=== PATIENT | female | born 1935 | race Caucasian/White ===

== ENCOUNTER 2019-04-28 07:08 | Inpatient (IN) ==
[2019-04-28] MEDS ORDERED: NS 1,000 ML IV ONE (07:40)
[2019-04-28] MEDS ORDERED: MORPHINE IV ONE (07:40)
[2019-04-28] MEDS ORDERED: ZOFRAN IV ONE (07:40)
[2019-04-28] MEDS ORDERED: NEOSPORIN OINTMENT PACKET TOP ONE (07:41)
[2019-04-28] MEDS ORDERED: BOOSTRIX VACCINE IM ONE (07:41)
[2019-04-28 08:14] LABS: BASO# 0.03 X1000 (0.0-0.2); BASO% 0.4 % (0.0-0.8); EOS% 1.4 % (0.0-10.0); HEMATOCRIT 41.1 % (37.0-47.0); HEMOGLOBIN 14.7 g/dL (12.0-16.0); IMM GRAN# 0.03 X1000 (0.0-0.04); IMM GRAN% 0.4 % (0.0-0.5); LYMPH# 1.02 X1000 (1.2-3.4); LYMPH% 14.7 % (20.5-51.1); MCH 31.5 PG (27-31); MCHC 35.8 g/dL (33-37); MCV 88.2 FL (81-99); MONO# 0.83 X1000 (0.11-0.59); MONO% 11.9 % (1.7-9.3); MPV 8.2 FL (7.4-10.4); NEUT# 4.94 X1000 (1.4-6.5); NEUT% 71.2 % (42.2-75.2); PLT 321 X1000 (130-400); RBC 4.66 XMIL (4.2-5.4); WBC 6.95 X1000 (4.8-10.8)
[2019-04-28 08:26] LABS: INR 0.91; PROTIME 12.3 Seconds (11.0-16.0); PTT 27.1 Seconds (22.3-41.8)
[2019-04-28 08:26] LABS: ALLEN TEST YES; BE 4.5 mmoll (-3.0-3.0); BLOOD TYPE ARTERIAL; HCO3-(ACT) 28.3 mmoll (20.0-26.0); O2(CT) 18.7 mL/dL (15.0-23.0); O2HB 94.2 % (95.0-99.0); PCO2(98.6) 39 mmHg (35-45); PO2(98.6) 68 mmHg (60-100); SAMPLE BLOOD; THB 14.1 g/dL (11.5-17.4); pH(98.6) 7.47 (7.35-7.45)
[2019-04-28 08:49] LABS: ESTIMATED GFR > 60
--- NOTE | 2019-04-28 08:50 | PROVIDER DOCUMENTATION ---
HPI-Head Injury - General Chief Complaint: Fall Stated Complaint: FALL Time Seen by Provider: 04/28/19 07:30 Source: patient, other (neighbor who brought her in for evaluation) Allergies/Adverse Reactions: Patient Allergies Allergy/AdvReac Type Severity Reaction Status Date / Time No Known Allergies Allergy Verified 04/28/19 08:22 Home Medications: Home Medication List Medication Instructions Recorded Confirmed Last Taken Type Acebutolol [Sectral] 400 mg PO TID 08/19/15 04/28/19 09/10/15 08:00 History Aspirin [Aspirin EC] 81 mg PO DAILY 08/19/15 04/28/19 09/10/15 08:00 History Atorvastatin Calcium [Lipitor] 10 mg PO QHS 08/19/15 04/28/19 09/10/15 08:00 History Calcium 500 mg PO DAILY 08/19/15 04/28/19 09/10/15 08:00 History Diltiazem C.d. [Cardizem Cd] 240 mg PO BID 08/19/15 04/28/19 09/10/15 08:00 History Multivitamin [Multivitamins] 1 each PO DAILY 08/19/15 04/28/19 09/10/15 08:00 History Vitamin E 400 unit PO DAILY 08/19/15 04/28/19 09/10/15 08:00 History Hydrochlorothiazide 25 mg PO DAILY 09/10/15 04/28/19 09/10/15 08:00 History Aliskiren Hemifumarate [Tekturna] 300 mg PO DAILY 04/28/19 04/28/19 Unknown History Cyanocobalamin (Vitamin B-12) 1 cap PO DAILY 04/28/19 04/28/19 Unknown History [Vitamin B-12] Levothyroxine [Synthroid] 150 microgm PO DAILY 04/28/19 04/28/19 Unknown History - History of Present Illness-Head Injury Nature of Presenting Problem: Patient states the last thing she remember is getting dressed, and she must have fallen forward striking her face on something. She called her daughter, who is currently out of state, then her daughter called the neighbor to check on her. Neighbor states she has fallen a couple of times over the past couple of years with no recollection as to why she fell. Patient complains of moderate to severe left facial pain, has a small cut over her left eye. Left maxillary sinus is very painful. Last Td is unknown. Patient denies any symptoms before the fall or this morning. No recent illness. Head Injury Location: reports: other (left face) Other injuries associated with incident:: reports: head Quality of Pain: reports: aching Severity: reports: moderate, severe Onset/Duration: reports: 1 hour ago Timing: reports: still present, constant Method of Injury: reports: unknown, fell Any recent trauma/injury?: reports: none Loss of Consciousness: unsure Modifying Factors: improves with: nothing. worse with: palpation Injury Associated Symptoms: reports: denies symptoms Locality of Occurance: Home Similar Symptoms Previously?: Yes (a couple of times over the last couple of years) Recently seen or treated by another doctor?: No Review of Systems - Adult - REVIEW OF SYSTEMS - ADULT Constitutional: reports: no symptoms reported Eyes: reports: no symptoms reported Ears, Nose, Mouth & Throat: reports: no symptoms reported Cardiovascular: reports: no symptoms reported Respiratory: reports: no symptoms reported Gastrointestinal: reports: no symptoms reported Genitourinary: reports: no symptoms reported Musculoskeletal: reports: no symptoms reported Integumentary: reports: no symptoms reported Neurological: reports: no symptoms reported Psychiatric: reports: no symptoms reported Endocrine: reports: no symptoms reported Hematologic/Lymphatic: reports: no symptoms reported Allergic/Immunologic: reports: no symptoms reported All Other Systems: Reviewed and Negative Past History - Adult - PAST MEDICAL HISTORY-ADULT Review of Records: reports: Old Records Reviewed, Nursing Assessment Review, Medications Reviewed, Social history reviewed & non-contributory. Major Childhood Illnesses: reports: denies history Cardiovascular: reports: HTN, hyperlipidemia Respiratory: reports: denies history Gastrointestinal: reports: denies history Obstetrical/Gynecological: reports: denies history Genitourinary: reports: denies history Musculoskeletal: reports: denies history Neurological: reports: CVA Psychiatric: reports: denies history Endocrine/Immune: reports: thyroid disorder Other Conditions: reports: denies history - PRIOR SURGERIES/PROCEDURES Surgical/Procedure History: reports: hysterectomy, other (thyroid removed) - IMMUNIZATION STATUS Childhood Immunizations: See Nurse Assessment Flu Vaccine: See Nurse Assessment - FAMILY HISTORY Family History: reviewed, not pertinent - SOCIAL HISTORY Smoking: non-smoker Substance Use: none/never Alcohol Use Frequency: never Living Situation: family Physical Exam- Neurological - Physical Exam-Neuro Initial Vital Signs Reviewed: Yes (VSSAF) General Appearance: appears well, alert, no apparent distress Eye Exam: bilateral eye: normal inspection, PERRL, periorbital ecchymosis (left side, with 1.5cm superficial laceration lateral upper eyelid/eyebrow area) HENMT: moist mucous membranes, TMs normal, pharynx normal, maxillary tenderness (left side) Head Injury: ecchymosis (left periorbital), swelling (left periorbital/cheek), tenderness (left periorbital/cheek). negative: active bleeding, Gonzales's Sign, raccoon eyes Neck: non-tender, full range of motion, supple, normal inspection. negative: meningismus Respiratory: chest non-tender, lungs clear, normal breath sounds, no pleuratic chest pain, no respiratory distress, no accessory muscle use Cardiovascular: normal peripheral pulses, regular rate, rhythm, no edema, no ga llop, no JVD, no murmur, bradycardia Abdominal Exam: non tender, soft, no organomegaly, no pulsatile mass Lymphatic: no adenopathy Extremity: normal range of motion, non-tender, normal gait, normal inspection, no pedal edema, normal capillary refill oven operator Exam: normal hearing, normal speech, PERRL Coordination/Gait: normal finger to nose, normal gait, negative Romberg's sign Motor/Sensory: no motor deficit, no sensory deficit, no pronator drift Neurologic: oven operator II-XII nml as tested, grossly normal, no motor/sensory deficits Integumentary: normal color, normal turgor Psych/Mental Status: normal mood/affect, normal thought content, normal thought process, oriented x 3 - Glascow Coma Scale Best Eye Response: (4) open spontaneously Best Verbal Response: (5) oriented Best Motor Response: (6) obeys commands Total Glascow Score: 15 Progress - PLAN OF CARE/RESULTS Progress/Plan/Lab Results: Vital Signs - 8 hr 04/28/19 07:18 Temperature 97.6 F Pulse Rate 78 Respiratory Rate 20 Blood Pressure 143/81 O2 Sat by Pulse Oximetry 97 04/28/19 08:25 Influenza Screen - Final Nasopharyngeal Laboratory Results - last 24 hr 04/28/19 04/28/19 04/28/19 07:53 07:53 07:53 WBC 6.95 RBC 4.66 Hgb 14.7 Hct 41.1 MCV 88.2 MCH 31.5 H MCHC 35.8 RDW Std Deviation 13.0 Plt Count 321 MPV 8.2 Immature Gran % (Auto) 0.4 Neut % (Auto) 71.2 Lymph % (Auto) 14.7 L [place] % (Auto) 11.9 H Eos % (Auto) 1.4 Baso % (Auto) 0.4 Immature Gran # (Auto) 0.03 Neut # (Auto) 4.94 Lymph # (Auto) 1.02 L [place] # (Auto) 0.83 H Eos # (Auto) 0.10 Baso # (Auto) 0.03 PT INR PTT (Actin FS) Specimen Type Sample Site pH pCO2 pO2 HCO3 Base Excess Oxyhemoglobin ABG O2 Sat (Calculated) ABG O2 Saturation ABG Carboxyhemoglobin ABG Methemoglobin John Test A-a O2 Difference Total Hemoglobin Lactate FiO2 % Sodium 126 L Potassium 3.9 Chloride 89 L Carbon Dioxide 26 Anion Gap 11 BUN 14 Creatinine 0.8 Estimated GFR/1.73 m2 > 60 BUN/Creatinine Ratio 18 Glucose 104 Calculated Osmolality 254 Calcium 9.5 Total Bilirubin 0.56 AST 22 ALT 23 Alkaline Phosphatase 62 Creatine Kinase 46 Troponin T High Sens Total Protein 6.1 L Albumin 4.0 Globulin 2.1 Albumin/Globulin Ratio 1.9 Plasma Lactate TSH Urine Source Urine Color Urine Turbidity Urine pH Ur Specific [place] Urine Protein Ur Glucose (Stick) Ur Ketones (Stick) Urine Blood Urine Nitrite Urine Bilirubin Urobilinogen Dipstick Urine Leukocytes Plasma/Serum Ethyl Alc 04/28/19 04/28/19 04/28/19 07:53 07:53 07:53 WBC RBC Hgb Hct MCV MCH MCHC RDW Std Deviation Plt Count MPV Immature Gran % (Auto) Neut % (Auto) Lymph % (Auto) [place] % (Auto) Eos % (Auto) Baso % (Auto) Immature Gran # (Auto) Neut # (Auto) Lymph # (Auto) [place] # (Auto) Eos # (Auto) Baso # (Auto) PT 12.3 INR 0.91 PTT (Actin FS) 27.1 Specimen Type Sample Site pH pCO2 pO2 HCO3 Base Excess Oxyhemoglobin ABG O2 Sat (Calculated) ABG O2 Saturation ABG Carboxyhemoglobin ABG Methemoglobin John Test A-a O2 Difference Total Hemoglobin Lactate FiO2 % Sodium Potassium Chloride Carbon Dioxide Anion Gap BUN Creatinine Estimated GFR/1.73 m2 BUN/Creatinine Ratio Glucose Calculated Osmolality Calcium Total Bilirubin AST ALT Alkaline Phosphatase Creatine Kinase Troponin T High Sens 12 Total Protein Albumin Globulin Albumin/Globulin Ratio Plasma Lactate 1.2 TSH Urine Source Urine Color Urine Turbidity Urine pH Ur Specific [place] Urine Protein Ur Glucose (Stick) Ur Ketones (Stick) Urine Blood Urine Nitrite Urine Bilirubin Urobilinogen Dipstick Urine Leukocytes Plasma/Serum Ethyl Alc 04/28/19 04/28/19 04/28/19 07:53 08:20 08:30 WBC RBC Hgb Hct MCV MCH MCHC RDW Std Deviation Plt Count MPV Immature Gran % (Auto) Neut % (Auto) Lymph % (Auto) [place] % (Auto) Eos % (Auto) Baso % (Auto) Immature Gran # (Auto) Neut # (Auto) Lymph # (Auto) [place] # (Auto) Eos # (Auto) Baso # (Auto) PT INR PTT (Actin FS) Specimen Type ARTERIAL Sample Site R RADIAL pH 7.47 H pCO2 39 pO2 68 HCO3 28.3 H Base Excess 4.5 H Oxyhemoglobin 94.2 L ABG O2 Sat (Calculated) 18.7 ABG O2 Saturation 96.0 ABG Carboxyhemoglobin 1.90 ABG Methemoglobin 0.0 John Test YES A-a O2 Difference 33.0 Total Hemoglobin 14.1 Lactate 0.90 FiO2 % 21.0 Sodium Potassium Chloride Carbon Dioxide Anion Gap BUN Creatinine Estimated GFR/1.73 m2 BUN/Creatinine Ratio Glucose Calculated Osmolality Calcium Total Bilirubin AST ALT Alkaline Phosphatase Creatine Kinase Troponin T High Sens Total Protein Albumin Globulin Albumin/Globulin Ratio Plasma Lactate TSH 0.63 Urine Source CLEAN CATCH Urine Color YELLOW Urine Turbidity CLEAR Urine pH 7.5 Ur Specific [place] 1.014 Urine Protein NEGATIVE Ur Glucose (Stick) NEGATIVE Ur Ketones (Stick) NEGATIVE Urine Blood NEGATIVE Urine Nitrite NEGATIVE Urine Bilirubin NEGATIVE Urobilinogen Dipstick NORMAL Urine Leukocytes SMALL A Plasma/Serum Ethyl Alc Orders Category Date Time Status Cardiac Monitoring DIRECTED Care 04/28/19 07:41 Active Finger Stick Blood Sugar (ED) DIRECTED Care 04/28/19 07:41 Active Ice Pack to affected area DIRECTED Care 04/28/19 07:41 Active Wound Care DIRECTED Care 04/28/19 07:40 Active CHEST-2 VIEWS [RAD] Stat Exams 04/28/19 07:[address] HEAD/C-SPINE W/O CONTRAST [CT] Stat Exams 04/28/19 07:[address] MAXILLOFACIAL(SINUS) W/O CO [CT] Stat Exams 04/28/19 07:38 Completed ABG [RESP] Routine Lab 04/28/19 08:20 Completed ALCOHOL BLOOD Stat Lab 04/28/19 07:53 Completed CBC WITH ELECTRONIC DIFF [HEME] Stat Lab 04/28/19 07:53 Completed CK PROFILE [SP CHEM] Stat Lab 04/28/19 07:53 Completed COMPREHENSIVE METABOLIC PANEL [CHEM] Stat Lab 04/28/19 07:53 Completed INFLUENZA SCREEN A/B Stat Lab 04/28/19 08:25 Completed LACTATE, PLASMA [CHEM] Stat Lab 04/28/19 07:53 Completed PROTIME WITH INR [COAG] Stat Lab 04/28/19 07:53 Completed PTT [COAG] Stat Lab 04/28/19 07:53 Completed TROPONIN T HIGH SENSITIVITY Stat Lab 04/28/19 07:53 Completed TSH Stat Lab 04/28/19 07:53 Completed URINALYSIS [URINALYSIS] Stat Lab 04/28/19 08:30 Results URINE DRUG SCREEN Stat Lab 04/28/19 08:30 Received URINE MANUAL MICROSCOPIC [URINALYSIS] Stat Lab 04/28/19 08:30 Results 0.9% Sodium Chloride Inj [Ns] 1,000 ml Med 04/28/19 07:40 Active IV 125 mls/hr Diph,Pertuss(Acell),Tet Vac/Pf [Boostrix Vaccine] Med 04/28/19 07:41 Discontinued 0.5 ml IM .ONCE ONE Morphine Med 04/28/19 07:40 Discontinued 2 mg IV NOW ONE Neomycin/Bacitrcn/Polymyx Oint [Neosporin Ointment Med 04/28/19 07:41 Discontinued Packet] 1 each TOP NOW ONE Ondansetron [Zofran] Med 04/28/19 07:40 Discontinued 4 mg IV NOW ONE Altered Mental Status Stat Oth 04/28/19 07:41 Ordered EKG [EKG] Stat Ther 04/28/19 07:22 Draft Result Diagrams: 04/28/19 07:53 04/28/19 07:53 - REASSESSMENT Reassessment #1 Time Reassessed: 09:50 Status: improving (State[place] feels better with IVF and morphine. WOunds cleansed and dressed. I will ask hospitalist service to observe for unwitnessed fall/syncope and hyponatremia.) - EKG 1 Time of EKG reading by physician:: 07:32 EKG Read and Signed by:: Willian Landeros EKG Interpretation (*Must complete 3 of following elements*): Abnormal Rate: 57 Rhythm: Sinus perri [place]: normal QRS: poor R wave progression PA Interval: normal ST Wave: normal Prior EKG Comparison: unchanged from prior - XRAY 1 XRAY Study: Chest Impression: Normal, See EMR Report ( Signed EXAM: CHEST-2 VIEWS 04/28/2019 HISTORY: fall TECHNIQUE: PA and lateral chest COMMENT: There are scattered granulomata bilaterally. Compared to one 2011 there has been no significant change. IMPRESSION: No acute disease. Electronically signed by Mckinley Steen 04/28/2019 8:52 AM 04/28/19851 Interpreting Physician: Mckinley Steen MD Dictated Date/Time: 04/28/19851 cc: Willian Landeros MD; Tip Henriquez MD) - CT/MRI 1 CT Study: Head (and C-Spine) Impression: Abnormal, See EMR Report ( Signed EXAM: CT HEAD/C-SPINE W/O CONTRAST 04/28/2019 HISTORY: head injury/pain TECHNIQUE: This exam was performed using automated exposure control, adjustment of mA or kV according to patient size, and/or use of iterative reconstruction technique. COMMENT: There is no evidence of mass effect, bleed, or abnormal extra axial fluid collection. There is calcification in the globus pallidus on the right. The visualized paranasal sinuses are clear. The calvarium is intact. Compared to 05/04/2018 the appearance the brain has not changed significantly. 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 There is disc space narrowing at the C4-5, C5-6, and C6-7 levels with posterior osteophyte formation particularly at C6-7. This has not changed significantly since the previous study of 05/04/2018. The facets are aligned. There are severe facet hypertrophic changes on the left at the C3-4 level and on the right at C2-3 C3-4 C4-5 and C5-6. IMPRESSION: No evidence of acute intracranial disease. 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 Electronically signed by Mckinley Steen 04/28/2019 9:32 AM 04/28/19 0932 Interpreting Physician: Mckinley Steen MD Dictated Date/Time: 04/28/19 0929 cc: Willian Landeros MD; Tip Henriquez MD) 2 CT Study: Facial Bones Impression: Abnormal, See EMR Report (Signed EXAM: CT MAXILLOFACIAL(SINUS) W/O CO 04/28/2019 HISTORY: fall, facial injury TECHNIQUE: CT of the facial bones COMMENT: There are no air-fluid levels. There are degenerative changes in the temporomandibular joints particularly the left. The mandible appears to be intact. There is some fluid in the right mastoid air cells. There is no evidence of fracture. There are no apparent soft tissue abnormalities in the orbits. There is a hematoma over the left cheek. IMPRESSION: No acute bony abnormality. Electronically signed by Mckinley Steen 04/28/2019 9:34 AM 04/28/19 0934 Interpreting Physician: Mckinley Steen MD Dictated Date/Time: 04/28/19 0932 cc: Willian Landeros MD; Tip Henriquez MD) - CONSULTS/PCP/HOSPITALIST Notification #1 *Consult/PCP/Hospitalist*: Hospitalist paged at 0940 Time Discussed: 09:57 (LESLY Cid) Consult Disposition: Will see in ED, Admit Departure - Departure Date of Disposition Decision: 04/28/19 Time of Disposition Decision: 09:53 DIAGNOSIS: Hyponatremia syndrome Facial contusion Qualifiers: Encounter type: initial encounter Qualified Code(s): S00.83XA - Contusion of other part of head, initial encounter Fall as cause of accidental injury at home as place of occurrence Qualifiers: Encounter type: initial encounter Qualified Code(s): W19.XXXA - Unspecified fall, initial encounter Disposition: ADMITTED INPATIENT 09 Certified Medical Emergency: Emergent Condition: Stable Referrals and Follow-Ups: Tip Henriquez MD [Primary Care Provider] - - Critical Care Note This patient required my direct & personal management of CC.: No Attestation - Physician/ HELLEN Attestation Patient care was provided by Advanced Practice Provider:: No The physician spent face to face time with patient:: Yes Advanced Practice Provider documentation review:: Supervising physician onsite and consulted in the evaluation and care of this patient. The physician did have a face to face encounter with the patient.
[2019-04-28 08:53] LABS: AGAP 11; ALB/GLOB RATIO 1.9; ALKALINE PHOSPHATASE 62 U/L (32-104); BUN 14 mg/dL (8-22); CALCIUM 9.5 mg/dL (8.8-10.2); CHLORIDE 89 mmol/L (98-107); CK PROFILE 46 U/L (24-173); COSMO 254; CREATININE 0.8 mg/dL (0.5-0.9); GLUCOSE 104 mg/dL (70-104); GOT 22 U/L (10-30); GPT 23 U/L (10-36); POTASSIUM 3.9 mmol/L (3.5-5.1); SODIUM 126 mmol/L (136-145); TCO2 26 mmol/L (25-35); TOTAL BILIRUBIN 0.56 mg/dL (0.20-1.00); TOTAL PROTEIN 6.1 g/dL (6.3-8.3)
--- NOTE | 2019-04-28 08:55 | Diag Imaging Result Doc PS360 ---
EXAM: CHEST-2 VIEWS 04/28/2019 HISTORY: fall TECHNIQUE: PA and lateral chest COMMENT: There are scattered granulomata bilaterally. Compared to one 2011 there has been no significant change. IMPRESSION: No acute disease. Electronically signed by Mckinley Steen 04/28/2019 8:52 AM
--- NOTE | 2019-04-28 09:05 | EKG Report ---
Test Performed on : 04/28/2019 07:24:44 AM Test Reason : POSSIBLE SYNCOPE Blood Pressure : / mmHG Vent. Rate : 057 BPM Atrial Rate : 057 BPM P-R Int : 164 ms QRS Dur : 088 ms QT Int : 454 ms P-R-T Axes : 074 037 044 degrees QTc Int : 441 ms Sinus bradycardia. Otherwise normal ECG When compared with ECG of 03-NOV-2010 09:58, No significant change was found Unconfirmed Result
--- NOTE | 2019-04-28 09:34 | Diag Imaging Result Doc PS360 ---
EXAM: CT HEAD/C-SPINE W/O CONTRAST 04/28/2019 HISTORY: head injury/pain TECHNIQUE: This exam was performed using automated exposure control, adjustment of mA or kV according to patient size, and/or use of iterative reconstruction technique. COMMENT: There is no evidence of mass effect, bleed, or abnormal extra axial fluid collection. There is calcification in the globus pallidus on the right. The visualized paranasal sinuses are clear. The calvarium is intact. Compared to 05/04/2018 the appearance the brain has not changed significantly. Cervical spine: Severe degenerative changes are seen in the anterior atlantoaxial joint with calcification of the ligaments. There is disc space narrowing at the C4-5, C5-6, and C6-7 levels with posterior osteophyte formation particularly at C6-7. This has not changed significantly since the previous study of 05/04/2018. The facets are aligned. There are severe facet hypertrophic changes on the left at the C3-4 level and on the right at C2-3 C3-4 C4-5 and C5-6. IMPRESSION: No evidence of acute intracranial disease. 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 Electronically signed by Mckinley Steen 04/28/2019 9:32 AM
--- NOTE | 2019-04-28 09:36 | Diag Imaging Result Doc PS360 ---
EXAM: CT MAXILLOFACIAL(SINUS) W/O CO 04/28/2019 HISTORY: fall, facial injury TECHNIQUE: CT of the facial bones COMMENT: There are no air-fluid levels. There are degenerative changes in the temporomandibular joints particularly the left. The mandible appears to be intact. There is some fluid in the right mastoid air cells. There is no evidence of fracture. There are no apparent soft tissue abnormalities in the orbits. There is a hematoma over the left cheek. IMPRESSION: No acute bony abnormality. Electronically signed by Mckinley Steen 04/28/2019 9:34 AM
[2019-04-28 09:41] LABS: URINE SOURCE CLEAN CATCH
[2019-04-28 09:47] LABS: BILIRUBIN URINE NEGATIVE (NEGATIVE); BLOOD URINE NEGATIVE (NEGATIVE); COLOR YELLOW; GLUCOSE URINE NEGATIVE (NEGATIVE); KETONE URINE NEGATIVE (NEGATIVE); LEUKOCYTES URINE SMALL (NEGATIVE); NITRITE URINE NEGATIVE (NEGATIVE); PH URINE 7.5; PROTEIN URINE NEGATIVE (NEGATIVE); SP GRAVITY URINE 1.014; TURBIDITY URINE CLEAR (CLEAR); UROBILINOGEN URINE NORMAL (NORMAL)
[2019-04-28 10:02] LABS: UR EPITHELIAL CELLS <10 /HPF (<10); URINE BACTERIA NEGATIVE /HPF; URINE RBC <10 /HPF (<10); URINE WBC <10 /HPF (<10)
[2019-04-28] MEDS ORDERED: ZOFRAN IV PRN (10:06)
[2019-04-28 10:52] LABS: URINE SMALL ROUND CELLS RENAL PRESENT
[2019-04-28 11:03] LABS: UR AMPHETAMINES QUAL NONE DETECTED (NONE DETECT); UR BARBITUATES QUAL NONE DETECTED (NONE DETECT); UR BENZODIAZEPIN QUAL NONE DETECTED (NONE DETECT); UR CANNABINOIDS QUAL NONE DETECTED (NONE DETECT); UR COCAINE QUAL NONE DETECTED (NONE DETECT); UR METHADONE QUAL NONE DETECTED (NONE DETECT); UR OPIATES QUAL NONE DETECTED (NONE DETECT); UR OXYCODONE QUAL NONE DETECTED (NONE DETECT); UR PCP QUAL NONE DETECTED (NONE DETECT)
[2019-04-28 11:03] LABS: TSH 0.65 uIUmL (0.27-4.20)
--- NOTE | 2019-04-28 12:07 | HISTORY AND PHYSICAL ---
CHIEF COMPLAINT: Fall. 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 She presents to the emergency room after falling this morning. The patient states that she got up out of bed this morning, and felt her normal self, went to the bathroom, went to the kitchen to make coffee, got dressed, and was walking across the floor, and the next thing she remembers is waking up on the floor, hurting below her left breast and on the left side of her face. She called her daughter, who lives out of town. The daughter called a neighbor. Neighbor went over to check on the patient. The patient denies any vomiting, any incontinence of stool or urine. She denied any dizziness or syncope, any palpitations or any warning. She states that she has fallen at least twice over the last 2 years with episodes similar to this. Ms. Carr is noted to have left periorbital ecchymosis and edema. She is tender to palpation just above her left eyebrow and the left maxillary area. She denies any dizziness, any change in vision, any chest pain or palpitations. PAST MEDICAL HISTORY: Hypertension, hyperlipidemia, hypothyroid, and a brain bleed 20 years prior with no residual. PAST SURGICAL HISTORY: Appendectomy, cholecystectomy, hysterectomy, thyroidectomy. SOCIAL HISTORY: She lives alone, but has children that live close and are active in her care. She denies any alcohol, tobacco, or illicit drug use. ALLERGIES: No known drug allergies. HOME MEDICATIONS: A list will be obtained by the nursing staff. Once verified, will review and restart as appropriate. REVIEW OF SYSTEMS: Discussed with the patient with pertinent positives stated in the HPI. She denied any dizziness, any chest pain, palpitations, shortness of breath, cough, fever, chills, any night sweats, recent weight loss or weight gain, any nausea, vomiting, diarrhea, constipation, black or bloody vomitus or stools, any hematuria, dysuria, frequency, urgency. PHYSICAL EXAMINATION: GENERAL: This is an 84-year-old female who is sitting up on the stretcher in the emergency room in no distress. VITAL SIGNS: Blood pressure is 143/81, with a heart rate of 78, respirations are 20, temperature is 97.6 degrees oral, with room air saturations of 97%. HEENT: Head is normocephalic, atraumatic. Mucous membranes are moist. Pupils are equal, round, and react to light. EOMs are intact. Sclerae are anicteric. NECK: Supple with trachea midline. CARDIOVASCULAR: Regular rate and rhythm. S1 and S2 appreciated. No murmurs. She has no lower extremity edema. Calves are nontender bilaterally. Peripheral pulse is palpable x4 extremities. PULMONARY: Breath sounds are clear with no increased work of breathing noted. Chest rises and falls symmetrically with respiration. Chest wall is tender to palpation, midclavicular area just below the left breast. There is no bruising or crepitus noted. GASTROINTESTINAL: Abdomen is soft, nontender, nondistended with bowel sounds in all 4 quadrants. GENITOURINARY: No CVA or suprapubic tenderness. SKIN: Warm and dry with periorbital edema and ecchymosis noted on the left with some ecchymosis noted in the left maxillary area. NEUROLOGIC: Pupils are equal, round, react to light. EOMs are intact. Forehead is spared. She has equal nasal flaring. Face is symmetrical. No tongue or uvula deviation. Equal shoulder shrug. She has no plantar drift. Muscle strength is 5/5 x4 extremities. [id number] is 3/3 bilateral. LABORATORY DATA: WBC is 6.9, with hemoglobin 14.7, hematocrit 41.1, and platelets of 321,000. INR 0.91. Sodium 126, potassium 3.9, BUN 14, creatinine 0.8, with a glucose of 104. Urinalysis is essentially negative. Urine drug screen reveals none detected. Blood alcohol reveals none detected. Influenza A and B are negative. IMAGIN. CT of the head and C-spine reveals no evidence of acute intracranial disease. Degenerative disk and facet changes in the cervical spine. 2. Maxillofacial CT: No acute bony abnormality. There is a hematoma over the left cheek. The left mandible appears to be intact. There is some fluid in the right mastoid air cells. There is no evidence of fracture. No apparent soft tissue abnormalities in the orbits. 3. Chest x-ray: No acute disease. ASSESSMENT: 1. Hyponatremia. 2. Fall. 3. Possible syncopal episode. 4. Periorbital contusion on the left. 5. Hypertension. 6. Hypothyroid. PLAN: The patient will be admitted to the hospital. She will be placed on telemetry with neurologic checks every 4 hours. Check orthostatic vital signs now and every 12 hours. Will obtain an echocardiogram and a carotid ultrasound. She will be placed on fall precautions. Will check a B12, folate, check a TSH now, a CBC and CMP in the morning. Will continue with gentle IV hydration. In reviewing her medications, the patient is on hydrochlorothiazide. She denies any prior history of hyponatremia. Will hold her hydrochlorothiazide at present, and trend labs in the morning. For DVT prophylaxis, will use SCDs. Hold off on any anticoagulation as she does have bruising and is status post a fall. For GI prophylaxis, Prilosec. Plan was discussed with Dr. Richter. Further orders after his evaluation. Dictated by LESLY Butler for Russell Richter MD cc: LESLY Butler MD [facility]
--- NOTE | 2019-04-28 17:29 | ECHO REPORT ---
ORDER DATE: 04/28/2019 INDICATION: Syncope. FINDINGS: 1. The right atrium appears normal in size at 2.9 cm. 2. Mild tricuspid regurgitation. RV systolic pressure of 40. 3. Normal RV size and systolic function. 4. No significant pulmonic insufficiency. 5. Normal left atrial size with a volume index of 22. 6. No mitral valve prolapse. Trace mitral regurgitation. 7. Normal LV size, end-diastolic dimension of 4.3. Normal wall thicknesses with a posterior and interventricular septal wall thickness of 0.7 cm each. Normal LV systolic function. The estimated EF is 60% to 65% with normal wall motion. 8. The aortic valve appears to open well. There is mild insufficiency. No evidence of stenosis. 9. The aorta appears normal in visualized segments. 10. No pericardial effusion seen. 11. Suggestion of grade 1 diastolic dysfunction. 12. Injection of agitated saline contrast did not seem to demonstrate any clear evidence of right- to-left shunt. cc: MD Vicky Canales CRNP
[2019-04-28 19:46] LABS: CALCIUM 8.6 mg/dL (8.8-10.2); POTASSIUM 3.1 mmol/L (3.5-5.1)
[2019-04-28] MEDS ORDERED: TYLENOL PO PRN (20:24)
[2019-04-28 23:06] LABS: URINE SOURCE CLEAN CATCH
[2019-04-28 23:09] LABS: BILIRUBIN URINE NEGATIVE (NEGATIVE); BLOOD URINE NEGATIVE (NEGATIVE); COLOR YELLOW; GLUCOSE URINE NEGATIVE (NEGATIVE); KETONE URINE NEGATIVE (NEGATIVE); LEUKOCYTES URINE TRACE (NEGATIVE); NITRITE URINE NEGATIVE (NEGATIVE); PROTEIN URINE NEGATIVE (NEGATIVE); TURBIDITY URINE CLEAR (CLEAR); UROBILINOGEN URINE NORMAL (NORMAL)
[2019-04-28 23:17] LABS: UR EPITHELIAL CELLS <10 /HPF (<10); URINE BACTERIA NEGATIVE /HPF; URINE RBC <10 /HPF (<10); URINE WBC <10 /HPF (<10)
[2019-04-28 23:53] LABS: CALCIUM 8.5 mg/dL (8.8-10.2); CREATININE 0.9 mg/dL (0.5-0.9); POTASSIUM 3.6 mmol/L (3.5-5.1)
[2019-04-29 03:16] LABS: AGAP 8; BUN 12 mg/dL (8-22); CALCIUM 8.7 mg/dL (8.8-10.2); CHLORIDE 95 mmol/L (98-107); COSMO 259; CREATININE 0.7 mg/dL (0.5-0.9); ESTIMATED GFR > 60; GLUCOSE 98 mg/dL (70-104); POTASSIUM 3.1 mmol/L (3.5-5.1); SODIUM 129 mmol/L (136-145); TCO2 26 mmol/L (25-35)
[2019-04-29 07:54] LABS: BASO# 0.02 X1000 (0.0-0.2); BASO% 0.4 % (0.0-0.8); EOS# 0.06 X1000 (0.0-0.7); EOS% 1.2 % (0.0-10.0); HEMOGLOBIN 12.8 g/dL (12.0-16.0); LYMPH# 0.99 X1000 (1.2-3.4); LYMPH% 19.5 % (20.5-51.1); MCH 31.4 PG (27-31); MCHC 34.6 g/dL (33-37); MCV 90.9 FL (81-99); MONO# 0.67 X1000 (0.11-0.59); MONO% 13.2 % (1.7-9.3); MPV 8.2 FL (7.4-10.4); NEUT# 3.33 X1000 (1.4-6.5); NEUT% 65.7 % (42.2-75.2); PLT 272 X1000 (130-400); RBC 4.07 XMIL (4.2-5.4); WBC 5.07 X1000 (4.8-10.8)
[2019-04-29 08:25] LABS: AGAP 8; ALB/GLOB RATIO 1.3; ALBUMIN 3.2 g/dL (3.5-5.0); ALKALINE PHOSPHATASE 55 U/L (32-104); BUN 10 mg/dL (8-22); CALCIUM 8.6 mg/dL (8.8-10.2); CHLORIDE 95 mmol/L (98-107); COSMO 263; CREATININE 0.7 mg/dL (0.5-0.9); ESTIMATED GFR > 60; GLUCOSE 97 mg/dL (70-104); GOT 18 U/L (10-30); GPT 19 U/L (10-36); POTASSIUM 3.1 mmol/L (3.5-5.1); SODIUM 132 mmol/L (136-145); TCO2 29 mmol/L (25-35); TOTAL BILIRUBIN 0.33 mg/dL (0.20-1.00); TOTAL PROTEIN 5.6 g/dL (6.3-8.3)
[2019-04-29] MEDS: CARDIZEM CD PO SCH ×2 (08:56→20:37)
[2019-04-29] MEDS: SYNTHROID PO SCH (08:56)
--- NOTE | 2019-04-29 16:07 | EKG Report ---
Test Performed on : 04/29/2019 3:54:55 PM Test Reason : Followup EKG Blood Pressure : / mmHG Vent. Rate : 066 BPM Atrial Rate : 066 BPM P-R Int : 136 ms QRS Dur : 088 ms QT Int : 402 ms P-R-T Axes : -17 020 047 degrees QTc Int : 421 ms Normal sinus rhythm. Normal ECG When compared with ECG of 28-APR-2019 07:24, (Unconfirmed) No significant change was found Confirmed by Russell BURRELL, Jarred Johnson ([id number]) on 05/03/2019 5:53:06 PM
[2019-04-29] MEDS: KLOR-CON PO SCH ×2 (18:36→22:14)
--- NOTE | 2019-04-29 20:05 | PROGRESS NOTE ---
DATE: 04/29/2019 INTERVAL HISTORY: No acute events overnight. Ms. Carr is feeling better. She denies new complaints. She denies dizziness, chest pain, shortness of breath, palpitations. Her daughter is at bedside. We discussed about hyponatremia. We discussed about multiple AV tabitha blocking agents. We discussed about getting another EKG. OBJECTIVE: vital signs: Currently, temperature of 98.1 degrees, pulse 66, respiratory rate 19, blood pressure 119/56, saturating 98% on room air. Ms. Carr does not appear in any acute distress. She does have a hematoma affecting the left periorbital region. Her oral cavity is moist. Air entry bilaterally equal. No wheeze, rhonchi, or crackles. S1, S2 normal. No murmur, rub, or gallop. Abdomen: Soft, nontender. No lower extremity edema. DIAGNOSTIC DATA: Bedside monitor has normal sinus rhythm. Input and output is not charted appropriately. Labs suggestive of hemoglobin of 12.8, WBC 5.07, platelet 272,000. She does have improvement in her electrolytes. Her sodium is 132, potassium is 3.1, chloride 95. Microbiology, no positive data so far. No positive imaging. Echocardiogram, 60 to 65 percent ejection fraction. ASSESSMENT AND PLAN: 1. Fall. The patient did not remember the fall episode entirely, though now she is alert and oriented x3, and does not have any amnesia. Differential includes hyponatremia, use of multiple AV tabitha blocking agents. She denies known history of seizures. I will get repeat EKG continue her on telemetry monitoring, and get orthostatic vitals. I am holding her beta blockers and continuing calcium channel blockers. I will recheck her sodium level tomorrow. I am holding her hydrochlorothiazide. 2. History of hyperlipidemia and hypothyroidism. Continue home levothyroxine and atorvastatin. DISPOSITION: My plan is to monitor patient inside the hospital for another 24 hours as I am watching her for any telemetric event, orthostatic vitals, and repeat EKG. Based on that, I will consider discharging her in the next 24 hours. Plan of care discussed with the patient and her daughter at bedside. Their questions have been satisfactorily answered. cc: Valentin Harper MD
--- NOTE | 2019-04-29 20:45 | PROGRESS NOTE ---
DATE: 04/28/2019 Patient came in with a syncopal episode. I think it is related to her hyponatremia. I agree with neuro checks, telemetry, echo, carotid. I think her problem with her hyponatremia is related to her poor nutrition and then the hydrochlorothiazide, which I would discontinue, I would probably say permanently and work on a better diet. Check urine electrolytes and follow. Slow correction. This was a [id number] encounter. cc: Russell Richter MD
[2019-04-29] MEDS ORDERED: LIPITOR PO SCH (21:00)
[2019-04-29] MEDS ORDERED: KLOR-CON PO SCH (22:30)
--- NOTE | 2019-04-29 22:48 | PROGRESS NOTE ---
DATE: 04/29/2019 INTERVAL HISTORY: No acute events overnight. SUBJECTIVE: Ms. Carr is denies new complaints. Her daughter is at bedside. VITALS: Temperature of 98.3 degrees, pulse 64, respiratory rate 19, blood pressure 146/56, saturating 98% room air. PHYSICAL EXAMINATION: Left eye periorbital hematoma.Lungs: Air entry bilaterally equal. Equal no wheeze or crackles. Cardiovascular: S1 normal. No murmur or gallop. Abdomen: Soft, nontender. Extremity: No lower extremity edema. Neurologic: She is alert and oriented x3. LABS: Suggestive of WBC of 5.0, hemoglobin 12.8, platelet 272,000. Sodium improved from 126 to 132, BUN is 10, creatinine of 0.7, urine osmolality is 280. Remaining urine tests are pending. No positive microbiological data. Echocardiogram had suggested ejection fraction of 60 to 65 percent with normal wall motion. ASSESSMENT AND PLAN: 1. Hyponatremia due to hydrochlorothiazide use versus other etiologies. 2. Syncope and mechanical fall. Differential being hyponatremia, symptomatic bradycardia, postural hypotension in the setting of use of multiple antihypertensive medication including high doses of beta osvaldo and diltiazem. 3. Periorbital contusion. 4. Essential hypertension. PLAN: Continue the patient on telemetry monitoring. Hold beta blockers. Take orthostatic vitals. Follow up sodium level. Follow up urine lytes. If she does not have any telemetric event, anticipating discharge in 24 hours with outpatient follow-up. Plan of care discussed with the patient and her daughter. Their questions have been satisfactorily answered. cc: Valentin Harper MD
[2019-04-30 07:56] VITALS: BP 148/55
[2019-04-30 08:37] LABS: AGAP 7; BUN 11 mg/dL (8-22); CALCIUM 8.9 mg/dL (8.8-10.2); CHLORIDE 99 mmol/L (98-107); COSMO 264; CREATININE 0.7 mg/dL (0.5-0.9); ESTIMATED GFR > 60; GLUCOSE 97 mg/dL (70-104); MAGNESIUM 1.9 mg/dL (1.5-2.7); POTASSIUM 4.1 mmol/L (3.5-5.1); SODIUM 132 mmol/L (136-145); TCO2 26 mmol/L (25-35)
[2019-04-30] MEDS: SYNTHROID PO SCH (08:39)
[2019-04-30] MEDS: CARDIZEM CD PO SCH (08:39)
[2019-04-30] MEDS ORDERED: ASPIRIN EC PO SCH (09:00)
[2019-04-30] MEDS ORDERED: TEKTURNA PO SCH (10:30)
--- NOTE | 2019-05-01 11:55 | DISCHARGE SUMMARY ---
ADMISSION DATE: 04/28/2019 DISCHARGE DATE: 04/30/2019 DISCHARGE DISPOSITION: Home. DISCHARGE CONDITION: Hemodynamically stable. She has not bradycardia episodes. She has not had any syncope episodes. She has been able to come out of bed and go to the bathroom without having any symptoms. Her orthostatic vitals were unremarkable. DISCHARGE DIAGNOSES: 1. Mechanical fall. 2. Suspected syncope. 3. Hyponatremia. 4. Suspected symptomatic bradycardia. OTHER DIAGNOSES: 1. History of hypothyroidism. 2. History of hyperlipidemia History of essential hypertension. CURRENT DIAGNOSES: 1. Periorbital contusion on the left. 2. Hypokalemia. DISCHARGE MEDICATIONS: 1. Atorvastatin 10 mg at nighttime. 2. Aspirin 81 mg daily. 3. Calcium 500 mg daily. 4. Diltiazem 240 mg b.i.d. 5. Multivitamin 1 tablet daily. 6. Levothyroxine 150 mcg daily. 7. Tekturna 300 mg daily. 8. Vitamin B12 1 capsule 1000 mcg daily. 9. Vitamin E 400 units daily. 10. Acetaminophen 650 mg every 6 hours as needed. VITAL SIGNS: At the time of discharge, temperature 98.3 degrees, pulse 60,respiratory rate 19, blood pressure 148/55, saturating 100% on room air. PHYSICAL EXAMINATION: General: Not in acute distress. HEENT: Oral cavity is moist. She has left-sided periorbital hematoma, but her conjunctiva and pupils are healthy. Pupils are bilaterally equal reacting to light. Lungs: Air entry bilateral equal. No wheezes, rhonchi or crackles. Heart: S1, S2 normal. No murmur, rub, or gallop. Abdomen: Soft, nontender. Extremities: No lower extremity edema. Neurologic: She is alert and oriented x3. LABORATORY: At the time of discharge, WBC 5000 hemoglobin 12.8, platelet 272,000. Sodium improved from 126 on presentation to 132, potassium 4.1, BUN 11, creatinine 0.7. Her vitamin B12 was more than 2000. Her TSH was 0.65. Her urinalysis did not have pyuria. Her urine osmolality was 280 and urine random sodium was 40. Urine toxicology was unremarkable. Urine culture did not have any growth. Influenza screen on presentation was negative. SIGNIFICANT IMAGIN. Head, cervical spine CT on presentation did not have evidence of acute intracranial disease. She did have degenerative disk and facet changes in cervical spine. 2. Maxillofacial CT did not have any acute bony abnormality. She had a left periorbital hematoma. 3. Chest x-ray on presentation did not have any acute cardiopulmonary process. 4. Echocardiogram had suggested ejection fraction of 60% to 65% with normal wall motion. 5. Electrocardiogram on presentation had sinus bradycardia. 6. Though carotid ultrasound has not been officially read, the preliminary report suggests she had 40% to 60% stenosis bilaterally. HOSPITAL COURSE SUMMARY: Ms. Carr is an 84-year-old lady with past medical history of essential hypertension, hyperlipidemia, hypothyroidism, intracranial hemorrhage 20 years ago without any residual defects or abnormalities, who got up to get dressed in the bathroom and had a fall. She could not remember the circumstances of the fall. The next thing she would remember was she was in the bed. She lives by herself. When she found herself in the bed, she was having pain in her left elbow, left breast region, and the left side of her face. She called her daughter and so she was brought to the hospital. In the emergency room, she was hemodynamically stable. The imaging of her head, cervical spine did not have any acute pathology. She was found to have hyponatremia with sodium of 126, so the Hospitalist team was consulted for further management. It was thought that there were potentially 2 contributing factors for her fall and possible syncope. One was hypotonic hyponatremia caused by use of hydrochlorothiazide and the second possibility was symptomatic bradycardia. She did have episode of heart rate of as low as 54 during this hospital admission. She was at home listed to be taking acebutolol as well as high dose of diltiazem. Her hydrochlorothiazide was stopped and she was given intravenous fluids following which her sodium improved and remained stable at 132. Her acebutolol all was stopped and she was kept on diltiazem following which her heart rate was stable at around 64 per minute. It was decided to discharge her on current antihypertensive medication regimen. At the time of discharge, she was provided detailed discharge instructions about following up with a regular physician and discussed about medication changes. She was also discussed with to follow up with her regular physician and discuss about ultrasound carotid report and having of follow-up ultrasound carotid. She was told that if she continues to have dizziness spells, she should have a discussion with her regular physician about need for ambulatory monitor tech. While inside the hospital, she did not have any symptomatic bradycardia episodes while her beta blockers were held. TIME SPENT: More than 30 minutes time was spent discharging the patient. Plan of care was extensively discussed with her. All her questions were satisfactorily answered. cc: Valentin Harper MD MTDD
--- NOTE | 2019-05-03 09:26 | Carotid Study ---
DATE: 04/28/2019 REQUEST PHYSICIAN: LESLY Butler. INDICATION: Syncope. FINDINGS: Bilateral carotid arteries systems were visualized. In the right, there is a broad- based plaque that is noted. The velocities in the distal internal carotid artery are elevated and will correlate to a 40 to 59 percent stenosis. In the left, there is again some atherosclerotic changes in the bulb that becomes a more broad-based plaque in proximal internal carotid artery and has similar elevation of velocities distally that would correlate to a 40 to 59 percent stenosis. The vessel does appear to become somewhat tortuous distally which could contribute to the elevation of velocities, but there is visible atherosclerotic changes. This would correlate to a moderate degree of stenosis bilaterally with antegrade vertebrals. IMPRESSION: Moderate stenosis bilaterally with antegrade vertebrals, but no hemodynamically significant lesion. cc: MD Vicky Peres CRNP
== END 2019-04-30 13:11 | disposition home or self-care (01) | DRG 641 ==
LOC: ED 07:08 → EDIPHOLD 11:50 → SUATTDRO 11:50 → 3N 15:59
PROVIDERS: ATTEND Internal Medicine